=== PATIENT | female | born 1945 | race Caucasian/White ===

== ENCOUNTER → 2017-07-02 09:43 | Outpatient (CLI) | payer MEDICARE, OTHER, SELFPAY ==
--- NOTE | 2017-07-02 | DI.CT.S_ITS ---
PROCEDURE: CT ABDOMEN PELVIS W CON INDICATIONS: ABDOMINAL PAIN TECHNIQUE: After the administration of oral and intravenous contrast, 5 mm thick sections acquired from the diaphragms to the symphysis. 5 mm thick coronal and sagittal reformats were performed. For radiation dose reduction, the following was used: automated exposure control, adjustment of mA and/or kV according to patient size. COMPARISON: Outside Facility, , CT ABDOMEN/PELVIS WITH CONTRAST, 05/25/2017, 21:27. FINDINGS: Image quality: Diagnostic. ABDOMEN: Lung bases: Lung bases are clear. Heart size is normal. Solid organs: Liver is normal in size and enhancement. Gallbladder is decompressed and not well evaluated. Biliary system is non-dilated. Pancreas enhances normally. Spleen is normal in size and enhancement. No adrenal nodules. Kidneys are normal in size and enhancement, without hydronephrosis. Parenchymal thinning of the bilateral kidneys is similar to the prior study. An excessive amount of fat is seen within the perirenal regions, which displaces several of the abdominal organs, anteriorly, including the bowel. This appearance is similar to the prior study. Peritoneum and bowel: There is a small hiatal hernia. Otherwise, the stomach and duodenum are unremarkable. The small bowel loops are nondilated. The previously seen dilated small bowel loops within the lower abdomen/pelvis have resolved in the interim. The appendix is not definitely seen. There is mild to moderate amount of residual stool within the colon. Scattered diverticulosis of the entire colon is more prominent within the rectosigmoid region. No surrounding inflammation is evident. No free fluid, loculated fluid collection or free air is identified. Nodes and vessels: No retroperitoneal or mesenteric adenopathy. Aorta and inferior vena cava are normal in caliber. There is moderate aortic and iliac artery atherosclerosis. Bones: Moderate multilevel degenerative changes of the imaged thoracolumbar spine are identified. There is a prominent posterior disc osteophyte complex identified at the level of L1-L2, which appears to result in central canal stenosis. Grade 1 anterolisthesis of L4 and L5 is present. No definite pars defects are identified. PELVIS: Genitourinary: Bladder wall thickness is normal. The uterus and ovaries are surgically absent. Miscellaneous: Small inguinal lymph nodes are incidentally noted. There is a small fat-containing left lumbar hernia. No significant right inguinal hernia is evident. No free fluid, loculated fluid collection or free air is identified. Bones: No suspicious bony lesions. No acute pelvic fractures are identified. Mild to moderate degenerative changes are noted involving the sacroiliac joints, bilateral hips, and pubis symphysis. IMPRESSION: 1. Small bowel loops are now within normal limits. There is no small bowel obstruction. 2. No acute abnormality within the abdomen or pelvis. 3. Extensive pararenal fat displaces multiple organs and bowel loops anteriorly, similar to the prior study. 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 4. Extensive colonic diverticulosis without diverticulitis. 5. Small hiatal hernia and fat-containing left inguinal hernia. 6. Aortic and iliac artery atherosclerosis. Dictated by: Bert Gilbert M.D. on 07/02/2017 at 12:46 Approved by: Bert Gilbert M.D. on 07/02/2017 at 12:52
== END ==
PROVIDERS: Family Provider Family Medicine; PCP Family Medicine; Visit Provider Family Medicine
DX: R10.9 Unspecified abdominal pain (principal); K57.90 Diverticulosis of intestine, part unspecified, without perforation or abscess without bleeding; K44.9 Diaphragmatic hernia without obstruction or gangrene; I70.0 Atherosclerosis of aorta; I70.8 Atherosclerosis of other arteries
CPT/HCPCS: 74177; Q9967

== ENCOUNTER → 2018-05-02 10:48 | Outpatient (CLI) | payer MEDICARE, OTHER, SELFPAY ==
--- NOTE | 2018-05-02 | DI.RAD.S_ITS ---
PROCEDURE: XR CERVICAL SPINE 4V OR 5V INDICATIONS: ARTHRITIS TECHNIQUE: 5 views of the cervical spine were acquired. COMPARISON: [facility], CT, C-SPINE WITHOUT CONTRAST, 06/10/2017, 9:42. [facility], MR, C-SPINE WITHOUT CONTRAST, 05/03/2017, 13:54. [facility], CR, CERVICAL SPINE 4 OR 5 VIEWS, 05/03/2017, 13:08. FINDINGS: Bones: ACDF is present from C3-C5. In addition postsurgical changes reflecting C2-C3 posterior fusion, C5-C7 fusion are noted. All hardware is intact. There is slight decreased range of motion with extension. No visualized fractures or dislocation. Soft tissues: Prevertebral soft tissues are normal in thickness. IMPRESSION: Stable post surgical changes with mild decreased range of motion with extension, unchanged. Dictated by: Samantha Swain M.D. on 05/02/2018 at 13:09 Approved by: Samantha Swain M.D. on 05/02/2018 at 13:34
== END ==
PROVIDERS: PCP Family Medicine
DX: M50.30 Other cervical disc degeneration, unspecified cervical region (principal); Z98.1 Arthrodesis status
CPT/HCPCS: 72050